=== PATIENT | female | born 1995 | race Two or more races ===

== ENCOUNTER 2019-10-11 15:17 | Inpatient (IN) | payer OTHER ==
[~2019-10-11] VITALS: Ht 152.4 cm; Wt 61.7 kg
[2019-11-04] MEDS ORDERED: DIALYVITE 800-1 EACH PO (05:57)
[2019-11-04] MEDS ORDERED: PRENATAL TABLE1 EAC1 PO (05:57)
== END 2019-11-06 13:32 | disposition home or self-care (01) | DRG 807 ==
LOC: LDR 11-04 04:28 → OB/GYN 11-04 13:38
PROVIDERS: ADMIT Obstetrics & Gynecology; ATTEND Obstetrics & Gynecology
PROC: 10E0XZZ Delivery of Products of Conception, External Approach (ICD-10-PCS; principal; 2019-11-04)
PROC: 0KQM0ZZ Repair Perineum Muscle, Open Approach (ICD-10-PCS; 2019-11-04)
PROC: 4A1HXFZ Monitoring of Products of Conception, Cardiac Rhythm, External Approach (ICD-10-PCS; 2019-11-04)
PROC: 3E033VJ Introduction of Other Hormone into Peripheral Vein, Percutaneous Approach (ICD-10-PCS; 2019-11-04)
DX: O24.420 Gestational diabetes mellitus in childbirth, diet controlled (principal); Z37.0 Single live birth; O99.824 Streptococcus B carrier state complicating childbirth; O70.1 Second degree perineal laceration during delivery; Z3A.39 39 weeks gestation of pregnancy; Z20.828 Contact with and (suspected) exposure to other viral communicable diseases